=== PATIENT | female | born 1965 ===

== ENCOUNTER 2017-07-23 08:32 | Emergency (ER) | payer OTHER ==
[2017-07-23 08:42] VITALS: TEMP 98.1; BMI 28.1
--- NOTE | 2017-07-23 10:04 | ED PDOC ---
HPI: Back Time Seen by Provider: 07/23/17 09:06 Chief Complaint (Nursing): Back Pain Chief Complaint (Provider): Back Pain History Per: Patient History/Exam Limitations: no limitations Current Symptoms Are (Timing): Still Present Additional Complaint(s): 51 y/o female presents to the ED complaining of back pain and right flank pain x 3 days. Reports that the pain is constant and is worse when walking and moving her body. Patient was seen at [facility] 2 days ago, where full work up was done. CBC, CMP, Lipase, urine and CT were all found to be unremarkable. She was given a prescription for Tramadol. Patient reports that pain still continued and tramadol is not helping. Reports that she has similar pain since past 2 months and had renal US done in past which was also unremarkable. Denies any further medical complaints. PMD: Mendez Larose MD Past Medical History Reviewed: Historical Data Vital Signs: Last Vital Signs Temp 98.1 F 07/23/17 08:59 Pulse 79 07/23/17 08:59 Resp 18 07/23/17 08:59 BP 118/76 07/23/17 08:59 Pulse Ox 98 07/23/17 08:59 - Medical History PMH: Gastritis - Surgical History Surgical History: No Surg Hx - Family History Family History: States: Unknown Family Hx - Social History Current smoker - smoking cessation education provided: No (Never Smoked) Alcohol: None Drugs: Denies - Home Medications Home Medications: Ambulatory Orders Medication Instructions Recorded Cyclobenzaprine [Cyclobenzaprine 10 mg PO TID #15 tab 07/23/17 HCl] Naproxen 500 mg PO BID #20 tablet 07/23/17 - Allergies Allergies/Adverse Reactions: Allergies Allergy/AdvReac Type Severity Reaction Status Date / Time acetaminophen [From Tylenol] AdvReac SHORTNESS Verified 07/23/17 08:59 OF BREATH Review of Systems ROS Statement: Except As Marked, All Systems Reviewed And Found Negative (As per HPI, otherwise negative) Gastrointestinal: Positive for: Abdominal Pain (right flank pain) Musculoskeletal: Positive for: Back Pain Physical Exam - Reviewed Nursing Documentation Reviewed: Yes Vital Signs Reviewed: Yes - Physical Exam Appears: Positive for: Non-toxic, No Acute Distress Head Exam: Positive for: ATRAUMATIC, NORMAL INSPECTION, NORMOCEPHALIC Skin: Positive for: Normal Color, Warm, Dry Eye Exam: Positive for: EOMI, Normal appearance, PERRL ENT: Positive for: Normal ENT Inspection Neck: Positive for: Normal, Painless ROM, Supple Cardiovascular/Chest: Positive for: Regular Rate, Rhythm. Negative for: Murmur Respiratory: Positive for: Normal Breath Sounds. Negative for: Accessory Muscle Use, Respiratory Distress Gastrointestinal/Abdominal: Positive for: Normal Exam, Soft. Negative for: Tenderness Back: Positive for: Normal Inspection Extremity: Positive for: Normal ROM. Negative for: Tenderness, Deformity Neurologic/Psych: Positive for: Alert, Oriented (x3) - Laboratory Results Result Diagrams: 07/23/17 10:10 07/23/17 10:10 - ECG O2 Sat by Pulse Oximetry: 98 (RA) Pulse Ox Interpretation: Normal - Progress Re-evaluation Time: 12:53 Condition: Re-examined, Improved Medical Decision Making Medical Decision Making: Time: 09:37 Initial Impression: Flank Pain and back pain Differential diagnosis: musculoskeletal pain, lumbar radiculopathy Plan: BMP Lipase Urine dipstick CBC w/ differential Cyclobenzaprine 10mg PO Toradol 30mg IVP Abdomen US Reevaluation Time: 12:11 Abdomen US FINDINGS: LIVER: Measures 15.8 cm in length. Normal echogenicity of the liver parenchyma. There is a 2.8 x 2.3 x 3.1 cm simple cyst in the left hepatic lobe and 3.7 x 3.0 x 3.2 cm simple cyst in the right hepatic lobe. . No intrahepatic bile duct dilatation. GALLBLADDER: There are multiple gallstones. There is no wall thickening or pericholecystic fluid. The sonographic Morse's sign is negative. COMMON BILE DUCT: Measures 3.4 mm. No stones. No dilatation. PANCREAS: Unremarkable as visualized. No mass. No ductal dilatation. RIGHT KIDNEY: Measures 11.1 cm in length. Normal echogenicity. No calculus, mass, or hydronephrosis. AORTA: No aneurysmal dilatation. IVC: Unremarkable. OTHER FINDINGS: None . IMPRESSION: Cholelithiasis. No biliary dilatation. 3.1 cm simple cyst in the left hepatic lobe and 3.7 cm simple cyst in the right hepatic lobe. Time: 12:53 Upon provider reevaluation patient is feeling better, is medically stable, and requires no further treatment in the ED at this time. Patient will be discharged home with Rx for Cyclobenzaprine 10mg PO and Naproxen 500mg PO. Counseling was provided and all questions were answered regarding diagnosis and need for follow up with PMD. There is agreement to discharge plan. Return if symptoms persist or worsen. Clinical Impression: Gallstones Scribe Attestation: Documented by Nkechi Carson acting as a scribe for Benny Hui MD. Scribe Attestation: All medical record entries made by the Scribe were at my direction and personally dictated by me. I have reviewed the chart and agree that the record accurately reflects my personal performance of the history, physical exam, medical decision making, and the department course for this patient. I have also personally directed, reviewed, and agree with the discharge instructions and disposition. Disposition - Clinical Impression Clinical Impression: Back pain, Gallstones - Patient ED Disposition Is Patient to be Admitted: No Doctor Will See Patient In The: Office Counseled Patient/Family Regarding: Studies Performed, Diagnosis, Need For Followup - Disposition Referrals: [facility] [Outside] Leandro Pham MD [Staff Provider] - Disposition: Routine/Home Disposition Time: 12:53 Condition: GOOD Additional Instructions: Take your medications as instructed. Follow up with your PCP in 2-3 days. Prescriptions: Cyclobenzaprine [Cyclobenzaprine HCl] 10 mg PO TID #15 tab Naproxen 500 mg PO BID #20 tablet Instructions: Gallstones, Low Back Pain (DC) Print Language: TURKISH
[2017-07-23 10:24] LABS: BASO % 0.6 % (0.0-2.0); EOS # 0.1 K/uL (0.0-0.7); EOS % 3.1 % (0.0-4.0); HEMOGLOBIN 12.5 g/dL (12.0-16.0); LYMPH # 1.4 K/uL (1.0-4.3); LYMPH % 35.1 % (20.0-40.0); MEAN CELL VOLUME 94.7 fl (81.0-99.0); MEAN CORPUSCULAR HEMOGLOBIN 32.3 pg (27.0-31.0); MEAN CORPUSCULAR HGB CONC 34.1 g/dL (33.0-37.0); MEAN PLATELET VOLUME 7.7 fl (7.2-11.7); MONO # 0.3 K/uL (0.0-0.8); MONO % 6.5 % (0.0-10.0); NEUT # 2.2 K/uL (1.8-7.0); NEUT % 54.7 % (50.0-75.0); NRBC % 0.3 % (0.0-0.0); RBC 3.87 Mil/uL (3.80-5.20); RED CELL DISTRIBUTION WIDTH 14.1 % (11.5-14.5); WHITE BLOOD COUNT 3.9 K/uL (4.8-10.8)
[2017-07-23 10:25] LABS: BLOOD UREA NITROGEN 10 mg/dl (7-17); CALCIUM 9.3 mg/dL (8.4-10.2); GFR AFRICAN-AMERICAN > 60; GFR NON-AFRICAN AMERICAN > 60; LIPASE 106 U/L (23-300)
--- NOTE | 2017-07-23 12:12 | US ---
HISTORY: Right upper quadrant pain COMPARISON: None. TECHNIQUE: Sonographic evaluation of the right upper quadrant of the abdomen. FINDINGS: LIVER: Measures 15.8 cm in length. Normal echogenicity of the liver parenchyma. There is a 2.8 x 2.3 x 3.1 cm simple cyst in the left hepatic lobe and 3.7 x 3.0 x 3.2 cm simple cyst in the right hepatic lobe. . No intrahepatic bile duct dilatation. GALLBLADDER: There are multiple gallstones. There is no wall thickening or pericholecystic fluid. The sonographic Morse's sign is negative. COMMON BILE DUCT: Measures 3.4 mm. No stones. No dilatation. PANCREAS: Unremarkable as visualized. No mass. No ductal dilatation. RIGHT KIDNEY: Measures 11.1 cm in length. Normal echogenicity. No calculus, mass, or hydronephrosis. AORTA: No aneurysmal dilatation. IVC: Unremarkable. OTHER FINDINGS: None . IMPRESSION: Cholelithiasis. No biliary dilatation. 3.1 cm simple cyst in the left hepatic lobe and 3.7 cm simple cyst in the right hepatic lobe.
[2017-07-23 13:00] VITALS: BP 110/77; PULSE 65; RESP 16
[2017-07-23 13:18] VITALS: O2SAT 98
== END 2017-07-23 14:48 | disposition home or self-care (01) ==
LOC: H.ER 08:32
DX: K80.20 Calculus of gallbladder without cholecystitis without obstruction (principal)
CPT/HCPCS: 76705; 80048; 81025; 83690; 85025; 96374; 99283; J1885